=== PATIENT | female | born 1945 | race Two or more races ===

== ENCOUNTER 2025-04-21 11:24 | Inpatient (IN) | payer OTHER ==
[~2025-04-21] VITALS: Ht 160 cm; Wt 70.0 kg
--- NOTE | 2025-04-21 11:32 | ECG ---
[facility] Test Date: 2025-04-21 Test Time: 11:31:07 Pat Name: JEMMA GAMEZ Department: ER Room: 0292T Gender: F Manager Field Sales: VICENTE : 1945 Requested By: HONG PAREKH Order Number: [id number] Reading MD: Trenton Lomax Measurements Intervals [place] Rate: 98 P: 56 NC: 149 QRS: -71 QRSD: 100 T: 72 QT: 377 QTc: 482 Interpretive Statements Sinus rhythm Incomplete RBBB and LAFB Consider right ventricular hypertrophy Electronically Signed On 04-23-2025 19:02:16 PDT by Trenton Lomax Please click the below link to view image of tracing.
--- NOTE | 2025-04-21 11:39 | ED.PDOC ---
HPI Comments This is a 79 year old female presenting to the ED with chief complaint of chest pain. Patient reports that she has been experiencing 10/10 substernal chest pain with associated SOB since Sunday. Patient relays that her pain started after receiving an injection of Tramadol the same day of onset. Patient denies any nausea, vomiting, fever, chills, dizziness, or headache. Chief Complaint: Chest Pain Time Seen by MD: 11:37 Reviewed Notes: Nurses Notes, Medications, Allergies Allergies: Coded Allergies: NO KNOWN ALLERGIES (Unverified , 04/21/25) Information Source: Patient Mode of Arrival: Ambulatory Severity: Moderate Timing: Days Duration: Since onset Prehospital treatment: None Location: Substernal Radiation: No Radiation Quality: Sharp Onset: At Rest Cardiac Risk Factors: HTN, Diabetes PE Risk Factors: None History of: None Associated Signs and Symptoms: SOB Past Medical History PAST MEDICAL HISTORY: Asthma, DM, HTN Surgical History: Hysterectomy PUBLICITY AGENT History: Denies all PUBLICITY AGENT Hx Family History Family History: Reviewed,noncontributory to illness Social History Smoker: Non-Smoker Alcohol: Denies ETOH Use Drugs: Denies Drug Use Lives In: Home Constitutional: denies: chills, diaphoresis, fatigue, fever, malaise, sweats, weakness, others EENTM: denies: blurred vision, double vision, ear bleeding, ear discharge, ear drainage, ear pain, ear ringing, eye pain, eye redness, hearing loss, mouth pain, mouth swelling, nasal discharge, nose bleeding, nose congestion, nose pain, photophobia, tearing, throat pain, throat swelling, voice changes, others Respiratory: reports: shortness of breath; denies: cough, hemoptysis, orthopnea, SOB at rest, SOB with excertion, stridor, wheezing, others Cardiovascular: reports: chest pain; denies: dizzy spells, diaphoresis, Dyspnea on exertion, edema, irregular heart beat, left arm pain, lightheadedness, palpitations, PND, syncope, others Gastrointestinal: denies: abdomen distended, abdominal pain, blood streaked bowels, constipated, diarrhea, dysphagia, difficulty swallowing, hematemesis, melena, nausea, poor appetite, poor fluid intake, rectal bleeding, rectal pain, vomiting, others Genitourinary: denies: abnormal vagina bleeding, burning, dyspareunia, dysuria, flank pain, frequency, hematuria, incontinence, pain, , vagina discharge, urgency, others Neurological: denies: dizziness, fainting, headache, left sided numbness, left sided weakness, numbness, paresthesia, pre-existing deficit, right sided numbness, right sided weakness, seizure, speech problems, tingling, tremors, weakness, others Musculoskeletal: denies: back pain, gout, joint pain, joint swelling, muscle pain, muscle stiffness, neck pain, others Integumetry: denies: bruises, change in color, change in hair/nails, dryness, laceration, lesions, lumps, rash, wounds, others Allergic/Immunocompromised: denies: Difficulty Healing, Frequent Infections, Hives, Itching, others Hematologic/Lymphatic: denies: anemia, blood clots, easy bleeding, easy bruising, swollen glands, others Endocrine: denies: excessive hunger, excessive sweating, excessive thirst, excessive urination, flushing, intolerance to cold, intolerance to heat, unexplained weight gain, unexplained weight loss, others Psychiatric: denies: anxiety, bipolar disorder, depression, hopeless, panic disorder, schizophrenia, sleepless, suicidal, others All Other Systems: Reviewed and Negative Physical Exam General Appearance: Moderate Distress HEENT: Normal ENT Inspection, Pharynx Normal, TMs Normal Neck: Full Range of Motion, Non-Tender, Normal, Normal Inspection Respiratory: Chest Non-Tender, Lungs Clear, No Accessory Muscle Use, No Respiratory Distress, Normal Breath Sounds Cardiovascular: No Edema, No JVD, No Murmur, No Gallop, Normal Peripheral Pulses, Regular Rate/Rhythm Breast Exam: Deferred Gastrointestinal: No Organomegaly, Non Tender, No Pulsatile Mass, Normal Bowel Sounds, Soft Genitalia: Deferred Pelvic: Deferred Rectal: Deferred Extremities: No calf tenderness, Normal capillary refill, Normal inspection, Normal range of motion, Non-tender, No pedal edema Musculoskeletal : Apperance: Normal Neurologic: Alert, fence installer II-XII nml as Tested, No Motor Deficits, Normal Affect, Normal Mood, No Sensory Deficits Cerebellar Function: Normal Reflexes: Normal Skin: Dry, Normal Color, Warm Lymphatic: No Adenopathy EKG EKG : Pulse Rate (adult): 98 [place]: Normal Cardiac Rhythm: NSR Block: RBBB Hypertrophy: RVH Was a procedure done? Was a procedure done?: No CP Differential Dx Differential Diagnosis: Angina, ME, Pulmonary Embolus Differential Diagnosis: CHF Differential Diagnosis: Pericarditis X-Ray, Labs, Meds, VS Vital Signs Date Time Temp Pulse Resp B/P (MAP) Pulse Ox O2 Delivery O2 Flow Rate FiO2 04/21/25 13:56 98 04/21/25 12:36 83 04/21/25 11:31 98 04/21/25 11:27 98.5 96 24 173/84 (113) 95 98.5 Lab Test 04/21/25 13:30 04/21/25 13:21 04/21/25 11:36 04/21/25 11:33 Range/Units Troponin I High Sensitivity Pending < 3 L < 3 L </=34 ng/L White Blood Count 14.4 H 4.4-10.8 10^3/uL Red Blood Count 4.53 4.0-5.20 10^6/uL Hemoglobin 13.6 12.2-16.2 g/dL Hematocrit 40.7 36.0-46.0 % Mean Corpuscular Volume 89.9 80.0-100.0 fL Mean Corpuscular Hemoglobin 30.1 28.0-32.0 pg Mean Corpuscular Hemoglobin Concent 33.5 32.0-36.0 g/dL Red Cell Distribution Width 12.5 11.8-14.3 % Platelet Count 384 140-450 10^3/uL Mean Platelet Volume 7.9 6.9-10.8 fL Neutrophils (%) (Auto) 70.6 37.0-80.0 % Lymphocytes (%) (Auto) 21.6 10.0-50.0 % Monocytes (%) (Auto) 7.5 0.0-12.0 % Eosinophils (%) (Auto) 0.0 0.0-7.0 % Basophils (%) (Auto) 0.3 0.0-2.0 % Neutrophils # (Auto) 10.2 H 1.6-8.6 10 ^3/uL Lymphocytes # (Auto) 3.1 0.4-5.4 10 ^3/uL Monocytes # (Auto) 1.1 0-1.3 10 ^3/uL Eosinophils # (Auto) 0 0-0.8 10 ^3/uL Basophils # (Auto) 0 0-0.2 10 ^3/uL Nucleated Red Blood Cells 0.1 % D-Dimer, Quantitative 0.74 H 0.0-0.49 mg/L FEU Sodium Level 136 136-145 mmol/L Potassium Level 4.5 3.5-5.1 mmol/L Chloride Level 100 98-107 mmol/L Carbon Dioxide Level 26 20-31 mmol/L Anion Gap 10 5-15 Blood Urea Nitrogen 18 9-23 mg/dL Creatinine 0.89 0.550-1.02 mg/dL Glomerular Filtration Rate Calc 67 >90 mL/min BUN/Creatinine Ratio 20.2 H 10.0-20.0 Serum Glucose 386 H 74-106 mg/dL Calcium Level 10.4 8.7-10.4 mg/dL Current Medications Medications (Trade) Dose Ordered Sig/Erin Route Start Time Stop Time Status Last Admin Aspirin 162 mg ONCE ONCE PO 04/21/25 11:45 04/21/25 11:46 DC 04/21/25 11:45 Chest XR indicates: No evidence of acute disease. The patient's CBC shows an elevated white blood cell count of 14.4 The rest of the CBC is within normal limits The chemistry panel is within normal limits IV Hep-Lock was established The patient received aspirin here in the emergency department's for the chest pain Patient's 1st troponin came back negative and the 2nd one did as well The patient is being admitted at this time with persistent chest pain Images Reviewed?: Images reviewed and evaluated by me Time of 1ST Reevaluation: 15:10 Reevaluation 1ST: Unchanged Patient Education/Counseling: Diagnosis, Treatment, Prognosis Family Education/Counseling: No Family Present Additional Information Reviewed patient's previous visit(s): None The following tests were ordered, and results were reviewed by me: CBC, BMP, Troponin, EKG, Chest XR Additional information was gathered from interviewing the following independent historian: None I reviewed and agreed with the following test results read by other provider: Chest XR I discussed treatments and results with medical personnel and: Patient Comprehensive systems review obtained and negative except for what is stated in the HPI. SEPSIS Sepsis Screen Physician Orders Troponin-I Hs (04/21/25 14:27) Heplock Iv (04/21/25 11:36) Control Tower Radio Operator (04/21/25 11:36) Blood Pressure (04/21/25 11:36) Pulse Oximetry (04/21/25 11:36) Chest Two Views Routine (04/21/25 11:36) Urinalysis (04/21/25 11:36) Vital Signs Date Time Temp Pulse Resp B/P (MAP) Pulse Ox O2 Delivery O2 Flow Rate FiO2 04/21/25 13:56 98 04/21/25 12:36 83 04/21/25 11:31 98 04/21/25 11:27 98.5 96 24 173/84 (113) 95 98.5 Laboratory Tests Test 04/21/25 11:36 White Blood Count 14.4 10^3/uL (4.4-10.8) H Medications Medications Dose Ordered Sig/Erin Route Start Time Stop Time Status Last Admin Dose Admin Aspirin 162 mg ONCE ONCE PO 04/21/25 11:45 04/21/25 11:46 DC 04/21/25 11:45 Departure 1 Departure Time of Disposition: 15:10 Impression: Primary Impression: Acute coronary syndrome Disposition: ADMITTED INPATIENT Admit to: Tele Condition: Fair Critical Care Note Critical Care Time?: No Stability Stability form required: Yes Unstable for transfer: Telemetry monitoring (Telemetry monitoring required), ED Physician Assesment (Clinical assesment) Heart Score Heart Score: Heart Score Response (Comments) Value History Highly Suspicious 2 EKG Repolarization Disturb 1 Age >65 2 Risk Factors >3 or Hx ASHD 2 Troponin Normal limit 0 Total 7 I personally scribed for HONG PAREKH MD ([email or web address]) on 04/21/25 at 11:39. Electronically submitted by Wilfrid Miller ([email or web address]). I personally scribed for HONG PAREKH MD ([email or web address]) on 04/21/25 at 13:04. Electronically submitted by Wilfrid Miller ([email or web address]). HONG PAREKH MD Apr 21, 2025 11:39
--- NOTE | 2025-04-21 12:13 | DVH ---
CHEST RADIOGRAPH Indication: cp Technique: Frontal and lateral view of the chest was obtained Comparison: None FINDINGS: Lines and Tubes: None Lungs: Clear Pleura: No effusion. No pneumothorax. Cardiomediastinal contours: Unremarkable Bones: Unremarkable IMPRESSION: No evidence of acute disease.
[2025-04-21 12:46] LABS: Hematocrit 40.7 % (36.0-46.0); Hemoglobin 13.6 g/dL (12.2-16.2); Mean Corpuscular Hemoglobin 30.1 pg (28.0-32.0); Mean Corpuscular Volume 89.9 fL (80.0-100.0); Nucleated Red Blood Cells % 0.1 %
[2025-04-21 12:47] LABS: Chloride 100 mmol/L (98-107); Potassium 4.5 mmol/L (3.5-5.1)
[2025-04-21 12:48] LABS: Anion Gap 10 (5-15); Carbon Dioxide 26 mmol/L (20-31); Sodium 136 mmol/L (136-145)
[2025-04-21 12:51] LABS: Calcium 10.4 mg/dL (8.7-10.4)
[2025-04-21 12:53] LABS: BUN/Creatinine Ratio 20.2 (10.0-20.0); Blood Urea Nitrogen 18 mg/dL (9-23)
--- NOTE | 2025-04-21 12:57 | ECG ---
[facility] Test Date: 2025-04-21 Test Time: 12:36:26 Pat Name: JEMMA GAMEZ Department: ER Room: 0292T Gender: F Integrative Medicine Physician: ANGEL : 1945 Requested By: HONG PAREKH Order Number: [id number] Reading MD: Trenton Lomax Measurements Intervals [place] Rate: 83 P: -22 MT: 113 QRS: -71 QRSD: 107 T: 64 QT: 390 QTc: 459 Interpretive Statements Sinus rhythm Borderline short MT interval Incomplete RBBB and LAFB Consider right ventricular hypertrophy Electronically Signed On 04-23-2025 19:02:50 PDT by Trenton Lomax Please click the below link to view image of tracing.
--- NOTE | 2025-04-21 12:57 | ECG ---
[facility] Test Date: 2025-04-21 Test Time: 12:35:47 Pat Name: JEMMA GAMEZ Department: ER Room: 0292T Gender: F Qa Consultant: ANGEL : 1945 Requested By: HONG PAREKH Order Number: [id number] Reading MD: Trenton Lomax Measurements Intervals [place] Rate: 87 P: -1 TN: 112 QRS: -71 QRSD: 105 T: 64 QT: 387 QTc: 466 Interpretive Statements Sinus rhythm Borderline short TN interval Incomplete RBBB and LAFB Consider right ventricular hypertrophy Electronically Signed On 04-23-2025 19:02:42 PDT by Trenton Lomax Please click the below link to view image of tracing.
[2025-04-21 12:59] LABS: Glucose 386 mg/dL (74-106)
[2025-04-21] MEDS: ONDANSETRON HCL 4 MG/2 ML VIAL IV ONE (15:27)
[2025-04-21] MEDS: MORPHINE SULFATE INJ 2 MG/ml SYRG IV ONE (15:29)
[2025-04-21] MEDS ORDERED: DOCUSATE SOD 100 MG CAP PO PRN (17:30)
[2025-04-21] MEDS: SODIUM CHLORIDE 0.9% 1,000 ML IV SCH (17:30)
[2025-04-21] MEDS ORDERED: ACETAMINOPHEN 325 MG TAB PO PRN (17:30)
[2025-04-21] MEDS ORDERED: DEXTROSE (50%) 50ML SYRG IV PRN (17:30)
[2025-04-21] MEDS ORDERED: hydrALAZINE HCL 20 MG/ML VL IV PRN (17:30)
[2025-04-21] MEDS ORDERED: ONDANSETRON HCL 4 MG/2 ML VIAL IV PRN (17:30)
[2025-04-21] MEDS: cefTRIAXone 1GM/50ML D5W 50 ML IV ONE (18:01)
[2025-04-21 18:16] LABS: Urine Protein, UAD Negative (Negative)
--- NOTE | 2025-04-21 18:39 | DVHHP2 ---
History of Present Illness Reason for Visit: Acute coronary syndrome History of Present Illness The patient is a 79-year-old female with past medical history of asthma, diabetes mellitus, and hypertension who presented to [facility] ED with complaint of chest pain. Patient reports she has been experiencing substernal chest pain rating 10/10 numeric scale, constant, sharp in nature, associated with shortness of breaths, getting worse that prompted this visit. Patient was seen and evaluated in the ED, laboratory data shows WBC 14.4, platelets 384, sodium 136, potassium 4.5, BUN 18, creatinine 0.89, glucose 386, calcium 10.4, troponin < 3, blood pressure 173/84 trending down to 152/67, heart rate 83, temperature 98.5 F, O2 saturation 98% on room air. Patient was given aspirin 162 mg p.o. x1, please see medication orders section in the computer. On my assessment, patient denied chest pain at this moment, no headache, no dizziness, no diaphoresis, no shortness of breaths, no nausea, no vomiting, no fever, no chills. Patient was admitted for further evaluation and medical management. Past Medical History Asthma, DM, HTN Past Surgical History Hysterectomy Family History Reviewed, noncontributory to the management of this case. Past Social History The patient lives at home, denies smoking, alcohol or illicit drugs abuse. Review of Systems Constitutional: No: Fever, Chills, Sweats, Weakness, Malaise, Other Eyes: No: Pain, Vision change, Conjunctivae inflammation, Eyelid inflammation, Other, Redness ENT: No: Ear pain, Ear discharge, Nose pain, Nose discharge, Nose congestion, Mouth pain, Mouth swelling, Throat pain, Throat swelling, Other Respiratory: Shortness of breath; No: Cough, Dry, SOB with excertion, Wheezing, Hemoptysis, Pleuritic Pain, Sputum, Wheezing, Other Cardiovascular: Chest Pain; No: Palpitations, Orthopnea, Paroxysmal Noc. Dyspnea, Edema, Lt Headedness, Other Gastrointestinal: No: Nausea, Vomiting, Abdominal Pain, Diarrhea, Constipation, Melena, Hematochezia, Other Genitourinary: No Dysuria, No Frequency, No Incontinence, No Hematuria, No Retention, No Other Musculoskeletal: No: other, neck pain, shoulder pain, arm pain, back pain, hand pain, leg pain, foot pain Skin: No: Rash, Lesions, Jaundice, Bruising, Other Neurological: No: Weakness, Numbness, Incoordination, Change in speech, Confusion, Seizures, Other Allergies: Coded Allergies: NO KNOWN ALLERGIES (Unverified , 04/21/25) Medications Current Medications Medications Dose Ordered Sig/Erin Route Start Time Stop Time Status Last Admin Dose Admin Aspirin 81 mg DAILY PO 04/22/25 10:00 Famotidine 20 mg DAILY IV 04/22/25 10:00 Losartan Potassium 25 mg DAILY PO 04/22/25 10:00 Metoprolol Tartrate 25 mg BID PO 04/21/25 22:00 Hydralazine HCl 10 mg Q6HP PRN IV 04/21/25 17:30 Ceftriaxone Sodium 50 ml @ 100 mls/hr DAILY@09 IV 04/22/25 09:00 Diagnostic Test (Pha) 1 strip IQ4HR 04/21/25 20:00 Insulin Human Regular IQ4HR SC 04/21/25 20:00 Dextrose 50 ml UD PRN IV 04/21/25 17:30 Sodium Chloride 1,000 ml @ 60 mls/hr [id number] IV 04/21/25 17:30 Acetaminophen/ Hydrocodone Bitart 1 tab Q4HP PRN PO 04/21/25 17:30 Ondansetron HCl 4 mg Q4HP PRN IV 04/21/25 17:30 Docusate Sodium 100 mg BIDPRN PRN PO 04/21/25 17:30 Acetaminophen 650 mg Q6HP PRN PO 04/21/25 17:30 Exam Vital Signs Vital Signs Date Time Temp Pulse Resp B/P (MAP) Pulse Ox O2 Delivery O2 Flow Rate FiO2 04/21/25 18:06 98.7 76 17 152/67 (95) 97 98.7 04/21/25 15:27 Room Air General Appearance: Alert, Oriented X3, Cooperative, No acute distress HEENT: Atraumatic, PERRLA, EOMI, Mucous membr. moist/pink Respiratory: Normal air movement Cardiovascular: Regular rate, Normal S1, Normal S2, No murmurs Abdominal: Normal bowel sounds, Soft, No tenderness, No hepatospenomegaly, No masses Extremities: No clubbing, No edema, Normal pulses, No tenderness/swelling Skin: No rashes, No breakdown, No significant lesion Neuro: Normal gait, Normal speech, Strength at 5/5 X4 ext, Normal tone, Sensation intact, Cranial nerves 3-12 NL, Reflexes 2+ Psych/Mental Status: Mental status NL, Mood NL Labs/Xrays Labs Test 04/21/25 17:27 04/21/25 13:21 04/21/25 11:36 Range/Units Urine Color Colorless Yellow Urine Clarity Clear Clear Urine pH 5.0 5.0-9.0 Urine Specific [place] 1.011 1.001-1.035 Urine Protein Negative Negative Urine Ketones Negative Negative Urine Blood 1+ H Negative /uL Urine Nitrite Negative Negative Urine Bilirubin Negative Negative Urine Urobilinogen Normal Negative mg/dL Urine Leukocyte Esterase Negative Negative /uL Urine RBC 1 0 - 4 /hpf Urine Microscopic WBC 1 0-5 /HPF Urine Squamous Epithelial Cells Few <5 /hpf Urine Bacteria Few H None Seen /hpf Urine Glucose 1+ H Normal mg/dL Troponin I High Sensitivity < 3 L </=34 ng/L White Blood Count 14.4 H 4.4-10.8 10^3/uL Red Blood Count 4.53 4.0-5.20 10^6/uL Hemoglobin 13.6 12.2-16.2 g/dL Hematocrit 40.7 36.0-46.0 % Mean Corpuscular Volume 89.9 80.0-100.0 fL Mean Corpuscular Hemoglobin 30.1 28.0-32.0 pg Mean Corpuscular Hemoglobin Concent 33.5 32.0-36.0 g/dL Red Cell Distribution Width 12.5 11.8-14.3 % Platelet Count 384 140-450 10^3/uL Mean Platelet Volume 7.9 6.9-10.8 fL Neutrophils (%) (Auto) 70.6 37.0-80.0 % Lymphocytes (%) (Auto) 21.6 10.0-50.0 % Monocytes (%) (Auto) 7.5 0.0-12.0 % Eosinophils (%) (Auto) 0.0 0.0-7.0 % Basophils (%) (Auto) 0.3 0.0-2.0 % Neutrophils # (Auto) 10.2 H 1.6-8.6 10 ^3/uL Lymphocytes # (Auto) 3.1 0.4-5.4 10 ^3/uL Monocytes # (Auto) 1.1 0-1.3 10 ^3/uL Eosinophils # (Auto) 0 0-0.8 10 ^3/uL Basophils # (Auto) 0 0-0.2 10 ^3/uL Nucleated Red Blood Cells 0.1 % D-Dimer, Quantitative 0.74 H 0.0-0.49 mg/L FEU Sodium Level 136 136-145 mmol/L Potassium Level 4.5 3.5-5.1 mmol/L Chloride Level 100 98-107 mmol/L Carbon Dioxide Level 26 20-31 mmol/L Anion Gap 10 5-15 Blood Urea Nitrogen 18 9-23 mg/dL Creatinine 0.89 0.550-1.02 mg/dL Glomerular Filtration Rate Calc 67 >90 mL/min BUN/Creatinine Ratio 20.2 H 10.0-20.0 Serum Glucose 386 H 74-106 mg/dL Calcium Level 10.4 8.7-10.4 mg/dL PATIENT: JEMMA GAMEZ ACCT: [id number] UNIT: [id number] : 1945 LOC: ER ROOM / BED: / AGE / SEX: 79 / F ADM STATUS: REG ER SERVICE 1136 ORDERING PHYSICIAN: HONG PAREKH MD PROCEDURE(s): CXR2 - CHEST TWO VIEWS ROUTINE REASON: cp ORDER NUMBER(s): [id number], ACCESSION NUMBER(s): [id number] CHEST RADIOGRAPH Indication: cp Technique: Frontal and lateral view of the chest was obtained Comparison: None FINDINGS: Lines and Tubes: None Lungs: Clear Pleura: No effusion. No pneumothorax. Cardiomediastinal contours: Unremarkable Bones: Unremarkable IMPRESSION: No evidence of acute disease. Assessment/Plan Assessment/Plan Acute coronary syndrome Hypertensive urgency Leukocytosis, unspecified Diabetes mellitus with hyperglycemia Plan 1. Admit to telemetry unit 2. Breathing treatment 3. Pain control management 4. IV antibiotic management 5. Management of fluids and electrolytes 6. Consultation for hospitalist 7. Diagnostic test chest x-ray 8. DVT prophylaxis-on aspirin 9. Repeat labs CBC, CMP in a.m. 10. Home medication reviewed and reconciled 11. Continue with current medical management 12. Treatment plan discussed with patient and RN. Patient verbalized understanding. Plan discussed with: Patient, Other (RN) My Orders Orders - MATTHEW SEGURA DNP Procedure Category Date Status Time Consistent DIET 04/21/25 Transmitted Carb(Ccho)Diabetes Dinner Aspirin Tablet PHA 04/22/25 In Process 10:00 Famotidine Injection PHA 04/22/25 In Process (Pepcid Injection) 10:00 Losartan Tablet PHA 04/22/25 In Process (Cozaar Tablet) 10:00 Metoprolol Tartrate PHA 04/21/25 In Process Tablet (Lopressor Ta 22:00 Hydralazine Injection PHA 04/21/25 In Process (Apresoline Inject 17:30 Ceftriaxone 1gm/50ml PHA 04/22/25 In Process D5w (Rocephin) 09:[address] 04/21/25 Logged Contrast 17:23 Glucose Blood PHA 04/21/25 In Process (Accu-Chek Comfort 20:00 Insulin R (Human) PHA 04/21/25 In Process (Insulin R) 20:00 Dextrose 50% Syringe PHA 04/21/25 In Process 17:30 Allergies JOURDAN 04/21/25 In Process 17:23 Code Status CODE 04/21/25 Transmitted 17:23 Sodium Chloride 0.9% PHA 04/21/25 In Process 17:30 Oxygen Per Hour RT 04/21/25 Transmitted 17:23 Hydrocodone-Acet PHA 04/21/25 In Process 5/325mg Tab ([place] 17:30 Ondansetron Hcl PHA 04/21/25 In Process (Zofran) 17:30 Docusate Sodium PHA 04/21/25 In Process Capsule (Colace 17:30 Complete Blood Count LAB 04/22/25 Verified 04:00 Comprehensive LAB 04/22/25 Verified Metabolic Panel 04:00 Cardiac DIET 04/21/25 Transmitted Diet-2gna,Lofat,Lochol Dinner Condition: Serious JOURDAN 04/21/25 In Process 17:23 Acetaminophen Tablet PHA 04/21/25 In Process (Tylenol Tablet) 17:30 Bedrest With Bathroom JOURDAN 04/21/25 In Process Privileg 17:23 Sequential JOURDAN 04/21/25 In Process Compression Device Admit ADMIT 04/21/25 Verified 18:38 Nitroglycerin PHA 04/21/25 Verified Sublingual (Ntrostat 18:45 Morphine Sulfate PHA 04/21/25 Verified Injection 18:45 Stat Ekg For Chest JOURDAN 04/21/25 Verified Pain 18:38 Notify Of Changes JOURDAN 04/21/25 Verified From Base 18:38 Metal Tile Lather For [facility] 04/21/25 Verified 24 Hours 18:38 Emergency Dysrhythmia [facility] 04/21/25 Verified Protocol 18:38 Rhythm Strips Once [facility] 04/21/25 Verified Every Shift 18:38 Oxygen By Nasal RT 04/21/25 Verified Cannula 18:38 Problem List: (1) Acute coronary syndrome (2) Hypertensive urgency (3) Leukocytosis, unspecified (4) Diabetes mellitus with hyperglycemia Date of Service: Apr 21, 2025 Billing Provider: MATTHEW SEGURA DNP Common Visit Codes: 93886-[id number] INP/OBS CARE (HIGH) MATTHEW SEGURA DNP Apr 21, 2025 18:39
[2025-04-21] MEDS: ACCU-CHEK COMFORT CURVE STRIP VI SCH (19:58)
[2025-04-21] MEDS: InsuLIN REG 1unit/0.01ml Soln (100units/ml) SC SCH (19:59)
[2025-04-21] MEDS: HYDROcodone-ACET 5/325MG TAB PO PRN (20:07)
[2025-04-21] MEDS: IOHEXOL 350 MG/ML 100ML IJ ONE (20:37)
[2025-04-21 21:53] VITALS: RESP 18; O2SAT 96
--- NOTE | 2025-04-21 21:53 | DVH ---
CLINICAL INFORMATION: 79 years old, Female; Pulmonary embolism. TECHNIQUE: Axial CTA images of the chest were obtained after the uneventful administration of 100 mL of Omnipaque 350 IV contrast. Coronal and sagittal reformatted images and MIP images were obtained, r eviewed, and stored. One or more of the following dose reduction techniques were used: Automated expo sure control. Adjustment of mA and/or kV according to patient size. CTDIvol = 19.96 mGy DLP = 730.23 mGy-cm COMPARISON: None FINDINGS: The thyroid gland is unremarkable. Inadequate contrast bolus timing within the pulmonary arteries to evaluate for pulmonary embolism wit h no pulmonary embolism noted centrally. Can not exclude pulmonary embolism within the distal subsegm ental pulmonary arteries. The pulmonary trunk is normal in size. No evidence of aortic aneurysm or di ssection. Mild atherosclerotic calcification of the aorta. Small amount of fluid within the pericardi al recess. Heart size is within normal limits. Subcentimeter mediastinal lymph nodes. Scattered bilateral lung atelectasis. No pneumothorax, pleural effusion or airspace consolidation. M inimal patchy ground-glass opacities of bilateral lungs. Acute appearing proximal sternal fracture with associated adjacent soft tissue edema. Minimal Foci of air within the adjacent left-sided soft tissue. IMPRESSION: Inadequate contrast bolus timing within the pulmonary arteries to evaluate for pulmonary embolism wit h no pulmonary embolism noted centrally. Can not exclude pulmonary embolism within the distal subsegm ental pulmonary arteries. Scattered bilateral lung atelectasis with minimal ground-glass opacities which may represent mild pul monary edema. Acute appearing proximal sternal fracture with associated adjacent edema. Correlate with history of t rauma.
[2025-04-21] MEDS: METOPROLOL TARTRATE 25 MG TAB PO SCH (22:00)
[2025-04-21 22:05] VITALS: PULSE 61; RESP 14
[2025-04-21] MEDS: NITROGLYCERIN 0.4 MG SL TAB SL PRN (22:37)
[2025-04-21] MEDS ORDERED: METF-370 PO (23:01)
[2025-04-21] MEDS: MORPHINE SULFATE INJ 2 MG/ml SYRG IV PRN (23:19)
[2025-04-22] MEDS ORDERED: METF-371 PO (00:30)
[2025-04-22 01:00] VITALS: BP 144/62; PULSE 61; RESP 14; TEMP 97.8; O2SAT 98
[2025-04-22] MEDS: MORPHINE SULFATE INJ 2 MG/ml SYRG IV PRN (04:34)
[2025-04-22 05:00] VITALS: BP 176/67; PULSE 68; RESP 15; TEMP 97.8; O2SAT 95
[2025-04-22 07:59] LABS: Hematocrit 40.3 % (36.0-46.0); Hemoglobin 13.4 g/dL (12.2-16.2); Mean Corpuscular Hemoglobin 29.6 pg (28.0-32.0); Mean Corpuscular Volume 89.1 fL (80.0-100.0); Nucleated Red Blood Cells % 0.0 %
[2025-04-22 08:00] VITALS: PULSE 66; PULSE 77; RESP 18; O2SAT 97
[2025-04-22 08:27] LABS: Alanine Aminotransferase 14 U/L (7-40); Albumin 4.6 g/dL (3.2-4.8); Alkaline Phosphatase 74 U/L (46-116); Anion Gap 7 (5-15); BUN/Creatinine Ratio 21.0 (10.0-20.0); Bilirubin, Total 0.4 mg/dL (0.2-1.0); Blood Urea Nitrogen 17 mg/dL (9-23); Potassium 4.4 mmol/L (3.5-5.1); Sodium 138 mmol/L (136-145); Total Protein 7.3 g/dL (5.7-8.2)
[2025-04-22 08:40] LABS: Calcium 10.8 mg/dL (8.7-10.4); Carbon Dioxide 34 mmol/L (20-31); Chloride 97 mmol/L (98-107); Glucose 189 mg/dL (74-106)
[2025-04-22] MEDS: LOSARTAN POTASSIUM 25 MG TAB PO SCH (09:13)
[2025-04-22] MEDS: cefTRIAXone 1GM/50ML D5W 50 ML IV SCH (09:16)
[2025-04-22] MEDS: FAMOTIDINE (10MG/ML) 2ML VL IV SCH (09:16)
[2025-04-22 09:32] VITALS: BP 152/76; PULSE 66; RESP 19; TEMP 98.3; O2SAT 97
[2025-04-22 13:00] VITALS: BP 147/72; PULSE 54; RESP 19; TEMP 98.8; O2SAT 95
[2025-04-22] MEDS ORDERED: HYDR-4902 PO (15:46)
--- NOTE | 2025-04-22 16:16 | DVHDS2 ---
Discharge Summary Date of Admission Apr 21, 2025 at 18:38 Date of Discharge: Apr 22, 2025 Admitting Diagnosis Acute coronary syndrome Labs/Diagnostic Data: Laboratory Results Test 04/22/25 11:49 04/22/25 07:22 04/21/25 17:27 04/21/25 13:21 POC Glucose 216 mg/dl (70-106) White Blood Count 12.8 10^3/uL (4.4-10.8) Red Blood Count 4.53 10^6/uL (4.0-5.20) Hemoglobin 13.4 g/dL (12.2-16.2) Hematocrit 40.3 % (36.0-46.0) Mean Corpuscular Volume 89.1 fL (80.0-100.0) Mean Corpuscular Hemoglobin 29.6 pg (28.0-32.0) Mean Corpuscular Hemoglobin Concent 33.2 g/dL (32.0-36.0) Red Cell Distribution Width 12.8 % (11.8-14.3) Platelet Count 367 10^3/uL (140-450) Mean Platelet Volume 7.7 fL (6.9-10.8) Neutrophils (%) (Auto) 65.8 % (37.0-80.0) Lymphocytes (%) (Auto) 26.3 % (10.0-50.0) Monocytes (%) (Auto) 7.5 % (0.0-12.0) Eosinophils (%) (Auto) 0.2 % (0.0-7.0) Basophils (%) (Auto) 0.2 % (0.0-2.0) Neutrophils # (Auto) 8.4 10 ^3/uL (1.6-8.6) Lymphocytes # (Auto) 3.4 10 ^3/uL (0.4-5.4) Monocytes # (Auto) 1.0 10 ^3/uL (0-1.3) Eosinophils # (Auto) 0 10 ^3/uL (0-0.8) Basophils # (Auto) 0 10 ^3/uL (0-0.2) Nucleated Red Blood Cells 0.0 % Sodium Level 138 mmol/L (136-145) Potassium Level 4.4 mmol/L (3.5-5.1) Chloride Level 97 mmol/L (98-107) Carbon Dioxide Level 34 mmol/L (20-31) Anion Gap 7 (5-15) Blood Urea Nitrogen 17 mg/dL (9-23) Creatinine 0.81 mg/dL (0.550-1.02) Glomerular Filtration Rate Calc 75 mL/min (>90) BUN/Creatinine Ratio 21.0 (10.0-20.0) Serum Glucose 189 mg/dL (74-106) Calcium Level 10.8 mg/dL (8.7-10.4) Total Bilirubin 0.4 mg/dL (0.2-1.0) Aspartate Amino Transferase (AST) 15 U/L (13-40) Alanine Aminotransferase (ALT) 14 U/L (7-40) Alkaline Phosphatase 74 U/L (46-116) Total Protein 7.3 g/dL (5.7-8.2) Albumin 4.6 g/dL (3.2-4.8) Urine Color Colorless (Yellow) Urine Clarity Clear (Clear) Urine pH 5.0 (5.0-9.0) Urine Specific Cowen 1.011 (1.001-1.035) Urine Protein Negative (Negative) Urine Ketones Negative (Negative) Urine Blood 1+ /uL (Negative) Urine Nitrite Negative (Negative) Urine Bilirubin Negative (Negative) Urine Urobilinogen Normal mg/dL (Negative) Urine Leukocyte Esterase Negative /uL (Negative) Urine RBC 1 /hpf (0 - 4) Urine Microscopic WBC 1 /HPF (0-5) Urine Squamous Epithelial Cells Few /hpf (<5) Urine Bacteria Few /hpf (None Seen) Urine Glucose 1+ mg/dL (Normal) Troponin I High Sensitivity < 3 ng/L (</=34) Test 04/21/25 11:36 D-Dimer, Quantitative 0.74 mg/L FEU (0.0-0.49) Other Laboratory Tests 04/22/25 07:22 Brief Hx & Hospital Course: History of Present Illness The patient is a 79-year-old female with past medical history of asthma, diabetes mellitus, and hypertension who presented to [facility] ED with complaint of chest pain. Patient reports she has been experiencing substernal chest pain rating 10/10 numeric scale, constant, sharp in nature, associated with shortness of breaths, getting worse that prompted this visit. Patient was seen and evaluated in the ED, laboratory data shows WBC 14.4, platelets 384, sodium 136, potassium 4.5, BUN 18, creatinine 0.89, glucose 386, calcium 10.4, troponin < 3, blood pressure 173/84 trending down to 152/67, heart rate 83, temperature 98.5 F, O2 saturation 98% on room air. Patient was given aspirin 162 mg p.o. x1, please see medication orders section in the computer. On my assessment, patient denied chest pain at this moment, no headache, no dizziness, no diaphoresis, no shortness of breaths, no nausea, no vomiting, no fever, no chills. Patient was admitted for further evaluation and medical management. Course of hospitalization: Patient was found to have sternal fracture on CT angiogram of the chest. Negative for pulmonary embolism. Further discussion with the patient reveals that she was seen by a masseuse, and had sternal cracking performed four days ago. Patient states that her breathing has been, worse, with noted aching type of chest pain. Long discussion was made with the patient's daughter was bedside regarding findings. Atelectasis probably secondary to hypoventilation giving sternal fracture. Daughter and patient are requesting to be discharged home. Patient will be provided pain medication in the form of Loris 5/325 q. every 8 hours as needed for [id number] pain. She is instructed to follow up with her PCP in 1-2 weeks. Patient has been hemodynamically stable and has been noted to ambulate. Patient was also instructed to continue all previous home medications. Physical examination General: Alert and Oriented x3. No acute distress. Well-nourished. Eyes: EOMI. Anicteric. HENT: Moist mucous membranes. Lungs: Clear to auscultation bilaterally. No accessory muscle use. Cardiovascular: Regular rate and rhythm. No murmur. No JVD. Abdomen: Soft, non-tender and non-distended. No palpable masses. Extremities: No edema. Non-tender. Skin: No rashes or lesions. Warm. Neurologic: No focal neurological deficits. CN II-XII grossly intact, but not individually tested. Psychiatric: Cooperative. Appropriate mood and affect. Total time spent with patient discussing and formulating plan of care: 35 minutes. This medical document was created using an electronic medical record system with [employer] dictation system. Although this document has been carefully reviewed, there may still be some phonetic and typographical errors. These areas are purely typographical due to imperfections of the software programs, and do not reflect any compromise in the patient's medical care. Condition at Discharge: Poor Final Diagnosis/Problems List Sternal fracture Secondary diagnosis: ACS ruled out Pulmonary embolism ruled out Sciatic nerve pain Diabetes mellitus Primary hypertension bilateral lower lobe atelectasis Discharge Disposition: Home Discharge Instruct/Medications Diet: Consistent carbohydrate, Cardiac 2g Na,low cholest Activity: No Restrictions, As Tolerated Follow Up/Referral: Follow up with PCP in 1-2 weeks Medications: Loris 5/325 q.8 hours as needed for lqbustib-ie-ntcceu pain Continue all home medications Scheduled Metformin Hydrochloride (Metformin Hcl), 500 MG PO IBID, (Reported) Scheduled PRN Hydrocodone-Acetaminophen (Hydrocodone Bitartrate/AC 5-325 mg), 1 TAB PO Q8HP PRN 36 Discharge Statement: "Patient was advised to return to the ER or call 911 if any headaches, dizziness, shortness of breath, chest pain, abdominal pain, bleeding, fevers, or worsening of medical condition. Patient was counseled about treatment plan, medications, possible side effects, patientverbalized understanding. All questions were answered to the best of my ability. This discharge took greater then 30 minutes in planning, reviewing documentation, counseling the patient, and discussing with other team members." ASSESSMENT ASSESSMENT Assessment Sternal fracture Date of Service: Apr 22, 2025 Billing Provider: TROY JOHNSON NP Common Visit Codes: 40553-XQK/OBS DISCH DAY >30min TROY JOHNSON NP Apr 22, 2025 16:16
[2025-04-22 16:45] VITALS: BP 145/79; PULSE 67; RESP 17; TEMP 98.6; O2SAT 97
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
== END 2025-04-22 18:20 | disposition home or self-care (01) | DRG 565 ==
LOC: ER 11:24 → OVERFLOW 18:38 → TELE-WESTW 22:03
PROVIDERS: ADMIT Nurse Practitioner Acute Care; ATTEND Nurse Practitioner Acute Care
DX: S22.20XA Unspecified fracture of sternum, initial encounter for closed fracture (principal); J98.11 Atelectasis; I16.0 Hypertensive urgency; D72.829 Elevated white blood cell count, unspecified; E11.65 Type 2 diabetes mellitus with hyperglycemia; I10 Essential (primary) hypertension; J45.909 Unspecified asthma, uncomplicated; M54.32 Sciatica, left side; M54.31 Sciatica, right side; Z79.899 Other long term (current) drug therapy; Z90.710 Acquired absence of both cervix and uterus; X58.XXXA Exposure to other specified factors, initial encounter; Y93.89 Activity, other specified; Y92.89 Other specified places as the place of occurrence of the external cause; Y99.8 Other external cause status
CPT/HCPCS: 36415; 71046; 71275; 80048; 80053; 81001; 82962; 84484; 85025; 85379; 93005; 96374; 96375; G0378; J1815; J2405; J3490

== ENCOUNTER 2025-05-13 08:41 | Emergency (ER) | payer OTHER ==
[~2025-05-13] VITALS: Ht 160 cm; Wt 64.7 kg
[~2025-05-13 08:41] MED LIST: HYDR-4902 PO; METF-370 PO
[2025-05-13 08:46] VITALS: TEMP 98.3
--- NOTE | 2025-05-13 10:02 | ED.PDOC ---
History of Present Illness HPI Comments 79-year-old female presents with a chief complaint of fall injuries x onset this morning. Patient states that she was getting up to use the shower and then had a mechanical fall. Patient states that she hit her head in the bathroom, but had no loss of consciousness. Patient has abrasions from the fall localized to her left forearm. Patient is also complaining of right hip pain. Chief Complaint: Fall Injury Time Seen by MD: 09:47 Primary Care Provider: UNKNOWN Reviewed Notes: Medications, Allergies Allergies: Coded Allergies: NO KNOWN ALLERGIES (Unverified , 04/21/25) Home Meds Active Scripts Hydrocodone-Acetaminophen (Hydrocodone Bitartrate/AC 5-325 mg) 1 Tab Tab, 1 TAB PO Q8HP PRN for 7 Days, #21 TAB Prov:TROY JOHNSON LINE SUPERVISOR 04/22/25 Reported Medications Metformin Hydrochloride (Metformin Hcl) 500 Mg Tab, 500 MG PO IBID for 30 Days, MG 04/21/25 Information Source: Patient Mode of Arrival: Ambulatory Severity: Moderate Timing: Hours Duration: Since onset Prehospital treatment: None Past Medical History PAST MEDICAL HISTORY: Asthma, DM, HTN Surgical History: Hysterectomy SIGNALS OFFICER History: Denies all SIGNALS OFFICER Hx Family History Family History: Reviewed,noncontributory to illness Social History Smoker: Non-Smoker Alcohol: Denies ETOH Use Drugs: Denies Drug Use Lives In: Home Constitutional: denies: chills, diaphoresis, fatigue, fever, malaise, sweats, weakness, others EENTM: denies: blurred vision, double vision, ear bleeding, ear discharge, ear drainage, ear pain, ear ringing, eye pain, eye redness, hearing loss, mouth pain, mouth swelling, nasal discharge, nose bleeding, nose congestion, nose pain, photophobia, tearing, throat pain, throat swelling, voice changes, others Respiratory: denies: cough, hemoptysis, orthopnea, SOB at rest, shortness of breath, SOB with excertion, stridor, wheezing, others Cardiovascular: denies: chest pain, dizzy spells, diaphoresis, Dyspnea on e xertion, edema, irregular heart beat, left arm pain, lightheadedness, palpitations, PND, syncope, others Gastrointestinal: denies: abdomen distended, abdominal pain, blood streaked bowels, constipated, diarrhea, dysphagia, difficulty swallowing, hematemesis, melena, nausea, poor appetite, poor fluid intake, rectal bleeding, rectal pain, vomiting, others Genitourinary: denies: abnormal vagina bleeding, burning, dyspareunia, dysuria, flank pain, frequency, hematuria, incontinence, pain, , vagina discharge, urgency, others Neurological: denies: dizziness, fainting, headache, left sided numbness, left sided weakness, numbness, paresthesia, pre-existing deficit, right sided numbness, right sided weakness, seizure, speech problems, tingling, tremors, weakness, others Musculoskeletal: denies: back pain, gout, joint pain, joint swelling, muscle pain, muscle stiffness, neck pain, others Integumetry: reports: wounds (ABRASIONS ); denies: bruises, change in color, change in hair/nails, dryness, laceration, lesions, lumps, rash, others Allergic/Immunocompromised: denies: Difficulty Healing, Frequent Infections, Hi ves, Itching, others Hematologic/Lymphatic: denies: anemia, blood clots, easy bleeding, easy bruising, swollen glands, others Endocrine: denies: excessive hunger, excessive sweating, excessive thirst, excessive urination, flushing, intolerance to cold, intolerance to heat, unexplained weight gain, unexplained weight loss, others Psychiatric: denies: anxiety, bipolar disorder, depression, hopeless, panic disorder, schizophrenia, sleepless, suicidal, others All Other Systems: Reviewed and Negative Physical Exam General Appearance: No Apparent Distress, Normal HEENT: Normal ENT Inspection, Pharynx Normal, TMs Normal Neck: Full Range of Motion, Non-Tender, Normal, Normal Inspection Respiratory: Chest Non-Tender, Lungs Clear, No Accessory Muscle Use, No Respiratory Distress, Normal Breath Sounds Cardiovascular: No Edema, No JVD, No Murmur, No Gallop, Normal Peripheral Pulses, Regular Rate/Rhythm Breast Exam: Deferred Gastrointestinal: No Organomegaly, Non Tender, No Pulsatile Mass, Normal Bowel Sounds, Soft Genitalia: Deferred Pelvic: Deferred Rectal: Deferred Extremities: No calf tenderness, Normal capillary refill, Normal inspection, Normal range of motion, Non-tender, No pedal edema Musculoskeletal : Apperance: Normal Neurologic: Alert, college coach II-XII nml as Tested, No Motor Deficits, Normal Affect, Normal Mood, No Sensory Deficits Cerebellar Function: Normal Reflexes: Normal Skin: Dry, Normal Color, Warm Lymphatic: No Adenopathy Was a procedure done? Was a procedure done?: No Differential Dx Considerations may include: Intracranial abnormality, arthritis X-Ray, Labs, Meds, VS Vital Signs Date Time Temp Pulse Resp B/P (MAP) Pulse Ox O2 Delivery O2 Flow Rate FiO2 05/13/25 10:04 77 18 158/71 (100) 96 05/13/25 10:04 77 18 96 Room Air 05/13/25 08:46 98.3 82 15 170/70 94 98.3 Current Medications Medications (Trade) Dose Ordered Sig/Erin Route Start Time Stop Time Status Last Admin Acetaminophen/ Hydrocodone Bitart ([place] 5/325MG Tab) 1 tab ONCE ONCE PO 05/13/25 10:00 05/13/25 10:01 DC 05/13/25 10:03 Time of 1ST Reevaluation: 10:17 Reevaluation 1ST: Unchanged Patient Education/Counseling: Diagnosis, Treatment Family Education/Counseling: Diagnosis, Treatment SEPSIS Sepsis Screen Date sepsis recognized/suspect: May 13, 2025 Time Sepsis recognized/suspect: 0844 Recent Procedure: No On Antibiotic Therapy: No Respiratory Rate >20: No Heart Rate >90: No Temp<36 C (96.8 F) or >38.3 C: No SBP <90 or MAP <65 mmHG: No New Acute Mental Status Change: No Is the patient on CPAP, BIPAP,: No Physician Orders R Hip Complete Xray (05/13/25 09:50) L Wrist 2 View Xray (05/13/25 09:50) Head Without Contrast (05/13/25 09:50) Vital Signs Date Time Temp Pulse Resp B/P (MAP) Pulse Ox O2 Delivery O2 Flow Rate FiO2 05/13/25 10:04 77 18 158/71 (100) 96 05/13/25 10:04 77 18 96 Room Air 05/13/25 08:46 98.3 82 15 170/70 94 98.3 Medications Medications Dose Ordered Sig/Erin Route Start Time Stop Time Status Last Admin Dose Admin Acetaminophen/ Hydrocodone Bitart 1 tab ONCE ONCE PO 05/13/25 10:00 05/13/25 10:01 DC 05/13/25 10:03 Departure 1 Departure Time of Disposition: 11:23 (Patient's workup is benign. We will discharge patient home with outpatient follow up) Impression: Primary Impression: Fall Qualified Codes: W19.XXXA - Unspecified fall, initial encounter Disposition: HOME / SELF CARE / HOMELESS Condition: Stable Additional Instructions: Your workup today was benign including normal imaging. You can take Tylenol or Motrin as needed for pain. You should follow up with your regular doctor within 1 week. You should stay well rested and well hydrated. If your symptoms worsen or you have any other concerns please return to the emergency room. Discharged With: Self Critical Care Note Critical Care Time?: No Stability Stability form required: No Heart Score Heart Score: Heart Score Response (Comments) Value History N/A 0 EKG N/A 0 Age N/A 0 Risk Factors N/A 0 Troponin N/A 0 Total 0 I personally scribed for CORTEZ REN MD ([email or web address]) on 05/13/25 at 10:02. Electronically submitted by Dima Cornejo ([email or web address]). CORTEZ REN MD May 13, 2025 10:02
[2025-05-13] MEDS: HYDROcodone-ACET 5/325MG TAB PO ONE (10:03)
[2025-05-13 10:04] VITALS: BP 158/71; PULSE 77; RESP 18; O2SAT 96
--- NOTE | 2025-05-13 10:46 | DVH ---
CLINICAL INDICATION: fall, trauma, pain TECHNIQUE: XY R HIP COMPLETE XRAY Comparison: None FINDINGS/IMPRESSION: : There is no evidence of acute fracture or dislocation. Soft tissues are unremarkable. 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
--- NOTE | 2025-05-13 10:46 | DVH ---
CLINICAL INDICATION: fall TECHNIQUE: XY L WRIST 2 VIEW XRAY Comparison: None FINDINGS/IMPRESSION: : There is no evidence of acute fracture or dislocation. Soft tissues are unremarkable. Degenerative changes of the radiocarpal joint space.
--- NOTE | 2025-05-13 10:59 | DVH ---
EXAM: CT HEAD WITHOUT CONTRAST INDICATION: Fall TECHNIQUE: CT of the head without intravenous contrast. Coronal and sagittal reformatted images are s ubmitted. Radiation Dose : 1. Head: CT Dose: CTDI volume is 52.84 mGy. Dose-length product is 1.71 mGy*cm The dose indicators for CT are the volume Computed Tomography (CT) Dose Index (CTDIvol) and the Dose Length Product (DLP), and are measured in units of mGy and mGy-cm, respectively. These indicators are not patient dose, but values generated from the CT scanner acquisition factors. The report includes radiation exposure data for exposures received during this examination. All CT scans at this medical facility are performed using dose modulation techniques as appropriate to a performed exam including the following: Automated exposure control was utilized; adjustment of the MA and/or KV according to patient size; and use of iterative reconstruction technique. COMPARISON: None FINDINGS: There is no evidence of acute intracranial hemorrhage, extra-axial collection, mass effect, midline s hift, herniation or hydrocephalus. The ventricles, sulci and cisterns are age appropriate. The hatfield-white differentiation is intact. The mastoid air cells are clear. There is mucosal thickening in the right maxillary sinus. No depressed calvarial fracture. The surrounding soft tissues are unremarkable. IMPRESSION: 1. No acute intracranial abnormality.
== END 2025-05-13 11:30 | disposition home or self-care (01) ==
LOC: ER 08:41
DX: S50.812A Abrasion of left forearm, initial encounter (principal); W18.39XA Other fall on same level, initial encounter; Y93.89 Activity, other specified; Y92.091 Bathroom in other non-institutional residence as the place of occurrence of the external cause; Y99.8 Other external cause status; M25.551 Pain in right hip; I10 Essential (primary) hypertension; E11.9 Type 2 diabetes mellitus without complications; J45.909 Unspecified asthma, uncomplicated; Z90.710 Acquired absence of both cervix and uterus
CPT/HCPCS: 70450; 73100; 73502